=== PATIENT | male | born 1955 | race Caucasian/White ===

== ENCOUNTER 2020-01-02 19:32 | Inpatient (IN) | payer OTHER ==
[~2020-01-02] VITALS: Ht 180.3 cm; Wt 56.1 kg
--- NOTE | ~2020-01-02 | D ---
[facility] [place] [address] DISCHARGE SUMMARY Name: IRIS SALDANA II Room #: 522B-B DIS IN M.R.#: [id number] Admission: 01/02/20 Attend Phys: Babak Mccann DO Discharge: 01/08/20 Date of : 57 Report #: [id number] THIS REPORT FOR: cc: ALEN - Jessi family physician/PCP ALEN - No family physician/PCP Babak Mccann DO ~ THIS REPORT FOR: //name// CC: Babak LOWRY physician/PCP DATE OF SERVICE: 01/08/2020 INPATIENT PSYCHIATRIC DISCHARGE SUMMARY ATTENDING PHYSICIAN: Babak Mccann DO. WIREWORKER: José Miguel Wilkins MD DISCHARGE DIAGNOSES: Schizophrenia and severe protein-calorie malnutrition as well. Diagnosis for his fingers initially it was thought it might be herpes vitiligo, but viral culture was negative and it grew out Staph aureus and Rothia mucilaginosa, that was Gram stain, anaerobic. MEDICAL COMORBIDITIES: Include abnormal liver function tests, chronic constipation. 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 DIET: Regular. ACTIVITY LEVEL: As tolerated. No alcohol, no illicit drugs. The patient is being discharged to his home. DISCHARGE MEDICATIONS: Bactrim-DS 1 tab p.o. b.i.d. x 12 more doses 6 more days; olanzapine 5 mg in the morning and 10 mg in the evening, Rx given for 10 mg #45; gentamicin sulfate ointment, approximately 1 g topical daily for 2 more weeks; magnesium oxide 400 mg p.o. b.i.d. for supplementation. The patient takes Linzess 145 mcg p.o. daily for bowel motility; takes buspirone 15 mg p.o. 3 times a day. Imaging this admission was arterial and venous study, which was limited due to his cooperation, but right upper extremity ultrasound arterial and venous was negative. [facility] [address] [place] [address] DISCHARGE SUMMARY Name: IRIS SALDANA MARGO Room #: 522B-B [facility].#: [id number] Admission: 01/02/20 Attend Phys: Babak Mccann, DO Discharge: 01/08/20 Date of : 57 Report #: [id number] Other laboratories this admission, hematology on the , H and H is 7.1 and 32.1, white count 4.0, platelets 209. Chemistries: Sodium 140, potassium 3.9, chloride 107, bicarbonate 32, anion gap 3, BUN 16, creatinine 0.9, estimated GFR 85, glucose 93, calcium 8.6, magnesium 1.3. Iron 93, TIBC 182, percent sat is 51 which is high, ferritin 306. Total bilirubin 0.7, direct bilirubin 0.3, GGT 376, AST 107, ALT 120, alkaline phosphatase 425. Total protein 5.8, albumin 2.5, vitamin B12 of 792, vitamin D absolutely low at 6.6. Deferred replacement on that, I believe to outpatient. TSH 2.662, which was negative. REASON FOR ADMISSION: Back on 01/02/2020 and was as follows: A 64-year-old male sent from [place]. Apparently, he had hypernatremia, dehydration, felt to be psychotic. HOSPITAL COURSE: The patient remains a voluntary, spoke with his outpatient psychiatrist, Dr. Matheus Orozco who has been seeing him since 08/2016. The patient has refused to take oral and long-acting injection antipsychotic medication. The patient's sister was contacted at home to provide some housing and food at times. Her name is Keiko Rosen. She had similar difficulty. The patient's son only unable to pursue guardianship due to family ____. The patient was oriented and understood the risks of illness and with continued malnutrition. He did take antipsychotic medication while in the hospital by doubtful, be compliant outside the hospital. On the day of discharge, the patient was not suicidal or homicidal. PHYSICAL EXAMINATION: VITAL SIGNS: On the day of discharge, temperature 36.5, pulse 87, respirations 20, BP 106/67. MUSCULOSKELETAL: Normal gait and station. MENTAL STATUS EXAMINATION: This is a well-developed, very malnourished underweight appearing male. Attention fair. Concentration limited. Speech is normal in rate, volume and tone. Thought process is linear and goal oriented. Thought content focused on discharge. No psychomotor agitation. No psychomotor retardation. Denied SI or HI. Denied auditory, visual, or tactile hallucinations. Denied hopelessness, helplessness. Memory not formally tested on day of discharge. Insight limited. Judgment fair to limited. Fund of knowledge below average. PROGNOSIS: For this patient is poor given his long noncompliance and has worked with Dr. Orozco and given his age, comorbidities. The patient in terms of followup will need psychiatric followup to attempt to encourage him to take medication. He is going to see Dr. Orozco at [facility] on 01/16/2020. I asked the renal social worker to attempt to set up by Gastroenterology [facility] [address] [place] [address] DISCHARGE SUMMARY Name: IRIS SALDANA II Room #: 522B-B DIS IN .R.#: [id number] Admission: 01/02/20 Attend Phys: Babak Mccann DO Discharge: 01/08/20 Date of : 57 Report #: [id number] appointment given his transaminitis and elevated alkaline phosphatase. At the moment, it does not like the patient was agreeable with that. By: [id number] Babak Mccann, DO /nt
[~2020-01-02 19:32] MED LIST: BUSPIRONE HCL10 MG PO; CLEOCIN HCL150 MG PO; TRAMADOL 50 MG50 MG PO
[2020-01-02 20:00] VITALS: BP 109/63
--- NOTE | 2020-01-02 20:00 | NUR ---
Assumed care of patient this pm shift. Patient arrived to the [facility] unit via wheelchair. Patient irritable and anxious when RN met with him. Patient also stated that he was hungry and has not eaten for over a month. Patient was given a turkey sandwhich tray this evening and ate it all along with esperanza crackers and applesauce. Patient takes medications whole with thin fluids. Patient is ambulatory and not a falls risk. Patient is impulsive and asks for the very thing that the nurse is working on multiple times. Patient is alert and oriented to person, place, and situation. Patient is continent of bowel and bladder. Patient is very neat and tidy and well groomed and dressed. Patient denies pain and patient denies hi/si. We will continue to monitor per hospital protocol.
[2020-01-02] MEDS ORDERED: BUSPIRONE HCL5 MG PO (21:19)
[2020-01-02] MEDS ORDERED: ZYPREXA5 MG PO (21:19)
[2020-01-02] MEDS ORDERED: LINZESS145 MCG PO (21:20)
[2020-01-03 09:21] VITALS: BP 136/72
[2020-01-03 09:36] LABS: ALBUMIN 2.4 g/dL (3.4-5.0); CALCIUM 7.8 mg/dL (8.5-10.1); CREATININE 0.7 mg/dL (0.7-1.3); MAGNESIUM 1.4 mg/dL (1.8-2.4); POTASSIUM 4.3 mmol/L (3.5-5.1); TOTAL BILIRUBIN 0.8 mg/dL (0.2-1.0); TOTAL PROTEIN 5.1 g/dL (6.4-8.2)
--- NOTE | 2020-01-03 14:05 | NUR ---
SW spoke with pt's sister Keiko [phone] and completed the intake assessment and TP. Pt lives alone in the home and has had multiple inpt and hospital stays since a TBI in 2006. Pt's has paranoid delusions of being poisoned by food or his furnace. This pt is non meds compiant and is seen by Dr Orozco at [facility]. t lives on disability and does not have a DPOA. Pt self medicates with OTC testosterone nad denies any subtane or ETOH misuse. Pt is likely going to d/c home with outpt treatment.
[2020-01-03 20:18] VITALS: BP 117/71
--- NOTE | 2020-01-04 01:50 | NUR ---
PATIENT IS A/OX3. HE WAS UP THIS EVENING AND IN DINING ROOM TO HAVE AN HS SNACK. PATIENT HAS BEEN CALM AND COOPERATIVE. PT IS DELUSIONAL IN THAT HE SAYS THE BLISTERS HE RECEIVED ON BILATERAL FINGER TIPS WERE FROM PEOPLE PUTTING DRANO IN HIS GLOVES AT WORK. HE ALSO FELT PEOPLE WERE TRYING TO POISON HIM. WE DID DISCUSS HIS WORK HE DOES AND HE HAS BEEN THERE FOR 23.5 YEARS. HE HAS BANDAID ON ONE FINGER TIP ON EACH HAND. THIS NURSE REMOVED THE BANDAIDS AND CLEANED WOUNDS WITH SOAP AND WATER. LEFT HAND WAS CULTURED WITH FOR ANAEROBIC,AEROBIC AND VIRUS CULTURES. GENTAMYCIN OINTMENT APPLIED TO FINGERTIPS AND NEW BANDAIDS APPLIED. PATIENT WALKS WITH STEADY GAIT AND IS CLEAN AND WELL DRESSED. PT DENIES SI/HI/AVH. PATIENT SLEEPING AT THIS TIME. PT DENIES PAIN. ROUTINE ROUNDS FOR STATUS AND SAFETY OF PATIENT. BED IN LOW POSITION. PATIENT IS INDEPENDENT WITH CARES AND IS CONTINENT.
--- NOTE | 2020-01-04 10:36 | HC ---
[facility] [place] [address] CONSULTATION Name: IRIS SALDANA II Room #: 52-B ADM IN M.R.#: [id number] Admission: 01/02/20 Attend Phys: Babak Mccann, Discharge: Date of : 57 Report #: [id number] THIS REPORT FOR: cc: ALEN - No family physician/PCP FAM - No family physician/PCP Dave Myers MD ~ CC: Babak Mccann [facility] physician/PCP DATE OF SERVICE: 01/03/2020 CHIEF COMPLAINT: Ulcerations to fingertips. HISTORY OF PRESENT ILLNESS: This is a 64-year-old male patient who was [facility] from [facility] for schizophrenia, suicidal ideation and low oral intake. He was noted to have ulcerations on his fingertips. He states that they are painful and cracking and needs to keep a moisturizer in place. He is uncertain as to when and how they began. He is a little bit uncooperative for exam, but does allow me to see his fingers. PAST MEDICAL HISTORY: Positive for history of schizophrenia, insomnia, constipation, anxiety, depression, cognitive impairment, and severe protein-calorie malnutrition. PAST SURGICAL HISTORY: He has had previous cholecystectomy. SOCIAL HISTORY: The patient denies alcohol or tobacco use or recreational drug use. Normally lives at home by himself. FAMILY HISTORY: Positive for history of father with lung cancer and a sister with a history of breast cancer. ALLERGIES: None. MEDICATIONS: Include nicotine, benzocaine and menthol, aluminum hydroxide, ondansetron, buspirone, Linzess, and Zyprexa. REVIEW OF SYSTEMS: Very limited due to the patient's cognitive impairment. PHYSICAL EXAMINATION: VITAL SIGNS: At this time include temperature 36.9, pulse 90, respiratory rate 13, blood pressure 136/72. GENERAL: This is a somewhat chronically ill-appearing male patient who appears to be in no distress. HEENT: Head normocephalic. Nose is clear. [address] [address] CONSULTATION Name: SHANAIRIS Room #: [facility] ADM IN .R.#: [id number] Admission: 01/02/20 Attend Phys: Babak Mccann, Discharge: Date of : 57 Report #: [id number] NECK: Supple. ABDOMEN: Soft. Bowel sounds present. EXTREMITIES: Demonstrate multiple superficial ulcerations to the fingertips with surrounding erythema. It is unclear as to whether these are self-induced, certainly would consider possibility of herpetic ashley, although I think less likely since multiple fingers on both hands are involved, but it does primarily seem to involve the fourth fingers of both hands. NEUROLOGIC: The patient is alert and moving all 4 extremities spontaneously. LABORATORY DATA: Include sodium 135, potassium 4.3, chloride 101, CO2 of 26, BUN 11, creatinine 0.7, glucose of 98, calcium is 7.8, alkaline phosphatase 315, total protein 5.1, albumin 2.4. Additional laboratory studies are not available for review at this time. CLINICAL IMPRESSION: Multiple ulcerations to the fingers of both hands, most pronounced on the fourth fingers. The differential diagnosis would include a cellulitis. The possibility of some arterial issues is considered, although I can feel his ulnar and radial pulses bilaterally. Herpetic ashley would be a consideration as well. RECOMMENDATIONS: At this point in time, we would recommend topical gentamicin ointment to the areas of redness to be covered with a Band-Aid. We will obtain a viral culture as well as a culture and sensitivity. I think we should be cautious with direct contact of these areas. I have discussed this with Dr. Wilkins as well as with Dr. Mccann. I appreciate being asked to see the patient in consultation. We will follow him here in the hospital. <ELECTRONICALLY SIGNED> By: Dave Myers MD 01/04/20 1036 [id number] Dave Myers MD /nt
--- NOTE | 2020-01-04 11:21 | NUR ---
Dann went to have ultra sound completed. The ultra sound was incomplete, per the imagining tech, Dann became beligerent with them. The tech made the decision to halt the US. Dr. Mccann was informed. Dr. Wilkins will be informed also.
--- NOTE | 2020-01-04 12:28 | NUR ---
Up ambulating with regular, steady gait. Alert and orientated X4. Denies SI/HI. Breath sounds clear. Reg HR ausculated. Color pink with brisk capillary refill and palpable peripheral pulses. Independent with voiding. Active bowel sounds over soft, flat abdomen. Fingertips of 4th finger discolored with some denuded skin, cleaned with NS and gentamycin ointment applied. To ultrasound per WC mid morning with staff. Calm and compliant with meds.
[2020-01-04 16:24] VITALS: BP 127/89
--- NOTE | 2020-01-04 18:28 | H ---
[facility] [place] [address] HISTORY AND PHYSICAL Name: IRIS SALDANA II Room #: 522B-B ADM IN M.R.#: [id number] Admission: 01/02/20 Attend Phys: Babak Mccann DO Discharge: Date of : 57 Report #: [id number] THIS REPORT FOR: cc: ALEN - No family physician/PCP FAM - No family physician/PCP Babak Mccann DO ~ CC: Babak Mccann [facility] physician/PCP DATE OF SERVICE: 01/03/2020 INPATIENT PSYCHIATRIC EVALUATION ATTENDING PHYSICIAN: Babak Mccann DO MEDICAL CONSULTANTS: Yeny Spear APRN, and Chaz Brand MD REASON FOR ADMISSION: Transferred from [facility], had a medical admission now, psychosis, paranoia, refusal to eat. SOURCES OF INFORMATION: Records from [place] and interview with the patient. HISTORY OF PRESENT ILLNESS: This is a 64-year-old male, very thin, BMI is 16.9, weight 54.885 kg, height 180.34 cm. The patient was admitted on 12/27/2019 to [place], so about a 6-day admission for medical purposes. There is a psychiatric consultation, which I have reviewed in detail. From the medical admission, a 64-year-old male admitted due to constipation, dehydration, electrolyte abnormalities in the setting of paranoid ideation regarding his food being poisoned. So, he only has eaten limited packaged foods in the past month, believes that he has been drugged at home. The patient was found to have hyponatremia, hypomagnesemia and constipation as well. IV fluids were given. Mag was as low as 0.9. Sodium was low as 129. KUB showed retained stool. Lipase was elevated at 447. Chest x-ray was negative. Initial laboratories, 12/28/2019, on the patient were white count 4.4, H and H 13.4/37.0, platelet count 141. Electrolytes were as of 12/28/2019, sodium 132, potassium 2.7, bicarbonate 30, anion gap 13, BUN 13, creatinine 1.0, GFR 80, glucose 135, calcium 7.4, phosphorus 1.4, magnesium 2.2. Psychiatric consultation done at [facility] by a fellow psychiatrist, Neha Mckeon MD, found him to be paranoid with other people poisoning him. ED physician spoke with sister, reportedly told another family member that if he does not get any better, he is going to kill himself. She stated the patient does not want to eat because they are clogging his asshole, does not know who they are, and it does not matter who is behind, believes they are putting stuffs and foods at the stores, which is causing his constipation, everyone will deny it, but it is [address] [address] HISTORY AND PHYSICAL Name: IRIS SALDANA MARGO Room #: 522B-B ADM IN M.R.#: [id number] Admission: 01/02/20 Attend Phys: Babak Mccann, DO Discharge: Date of : 57 Report #: [id number] true. Also, feels that they are drugging him in his home against his will. Buspirone 5 mg p.o. t.i.d. was prescribed as well as olanzapine 5 mg at bedtime. Other recommendation from a fellow psychiatrist for the patient not to leave AMA. Recommended inpatient psychiatric admission. With me, he reports that he is constipated. He does use Linzess, which is not on formulary at this hospital, so I ordered him senna with docusate. He sees Dr. Matheus Orozco at [facility], his outpatient psychiatrist. PAST MEDICAL HISTORY: Is a little bit limited as having some difficulty gathering it. Apparently, he receives care at [facility]. He had been evaluated by GI physician who felt that no further workup was indicated given chronic disease state. Routine colonoscopy completed in 2016. Apparently in 2017, he had concerns with his poor oral intake, feeling as though people are trying to poison him and had paranoia then. Medical history includes chronic constipation. PSYCHIATRIC HISTORY: Anxiety, depression. PAST SURGICAL HISTORY: Cholecystectomy. FAMILY HISTORY: Mom passed in the 80s secondary to complications from Clostridium difficile. Grandmother had colon cancer. Father passed at 82 from lung cancer. SOCIAL HISTORY: Denies alcohol. Denies recreational drug use. Former smoker, unknown date last smoked. REVIEW OF SYSTEMS: CONSTITUTIONAL: Reported fatigue, weakness, right shoulder pain and back pain, recent weight loss. Denies chills. SKIN: Denies bruising, diaphoresis, or swelling. ALLERGIES: Denies. EYES: Denies visual loss or blurred vision. EAR, NOSE, THROAT: Denies nasal congestion, sinus problem, sore throat. RESPIRATORY: Denies shortness of breath, wheezing. CARDIOVASCULAR: Denies palpitations, shortness of breath, chest pain. GASTROINTESTINAL: Denies nausea. Endorsed constipation. Denies diarrhea, dysphagia, GERD, hematemesis, melena or vomiting. GENITOURINARY: Denies frequency, burning or urgency. MUSCULOSKELETAL: Pain as described. ENDOCRINE: Reports weight loss. Denies dizziness. PSYCHIATRIC: Denied overt suicidal ideations, but did make statements that "you know everyone has to sometime." PHYSICAL EXAMINATION: VITAL SIGNS: Today are as follows: Temperature 36.5, pulse 90, respirations [facility] [address] [place] [address] HISTORY AND PHYSICAL Name: IRIS SALDANA II Room #: 522B-B ADM IN M.R.#: [id number] Admission: 01/02/20 Attend Phys: Babak Mccann DO Discharge: Date of : 57 Report #: [id number], BP 136/72, O2 sat 97%. GENERAL: A poorly nourished, almost cachectic appearing. He is kyphotic, thoracic kyphosis. Normal gait. MENTAL STATUS EXAMINATION: This is a well-developed, unkempt, malnourished appearing male. Attention fair. Concentration limited. Speech is normal rate, volume, tone. Thought process is linear and goal directed. Thought content, relative poverty of thought. No psychomotor agitation. No psychomotor retardation. Mood and affect are congruent and restricted. Denied auditory, visual or tactile hallucinations currently. He did say occasionally he has idea of reference such as someone behind him running even if there is not. Denies homicidal ideation, some morbid thinking. Insight impaired, judgment impaired. Fund of knowledge not formally tested today. FORMULATION: A 64-year-old male, voluntary, sent over from [facility] with history of schizophrenia. PLAN: Evaluate, stabilize, obtain collateral. I increased his olanzapine to 7.5 mg at bedtime last night, I added 2.5 mg at 12:30 dose today. Otherwise, we will continue him on senna-S 2 tabs p.o. b.i.d., nicotine 14 mg transdermal patch. I think the nurse got a history that he is smoking half pack a day and [facility] stated he was not. MiraLax 17 grams daily already ordered. Buspirone 15 mg t.i.d. currently ordered, the patient seems to like that drug. Home med Linzess is not available. We will consult dietitian, consult OT for gout as well. ESTIMATED LENGTH OF STAY: 10-14 days. STRENGTHS: Insured support from sister. WEAKNESSES: Chronic mental illness, remarkably malnourished. Time spent on interview, review of records, and coordination of care is at least 60 minutes. <ELECTRONICALLY SIGNED> By: Babak Mccann DO 01/04/20 1828 [id number] [id number] Babak Mccann DO /nt
[2020-01-04 19:24] VITALS: BP 131/74
[2020-01-04 21:00] VITALS: BP 131/74
--- NOTE | 2020-01-05 02:43 | NUR ---
PATIENT WAS LAYING ON COUCH IN DAYROOM THIS EVENING WATCHING TV. HE STATES HE HAD A BM TODAY BUT THAT IS HARD TO GET OUT AT TIME. HE IS USED TO TAKING LINZESS. HE IS WANTING TO CONTINUE THIS. PATIENT IS A/0X4 AND FORGETFUL AT TIMES. HIS MAIN CONCERN TONIGHT IS THAT HE WANTS SOMETHING TO HELP HIM STAY ASLEEP. PATIENT FELL ASLEEP OKAY BUT WAS UP 2-3 TIMES BEFORE 0100. CALLED AND ORDER RECEIVED FOR LORAZEPAM 1MG PO ONETIME. PATIENT IS BACK TO BED AND SLEEPING AT THIS TIME. HE HAS BEEN A LITTLE IRRITABLE THIS EVENING BUT COOPERATIVE AND TOOK ALL HIS MEDS WHOLE. HE HAD 2 HS SNACKS TONIGHT. HE SEEMS TO BE HUNGRY ALOT. HE DENIES PAIN, SI/HI/AVH. HE AMBULATES WITH A STEADY GAIT. BED IN LOW POSITION. PATIENT INDEPENDENT WITH CARES. WILL CONTINUE ROUTINE ROUNDS TO ASSESS FOR SAFETY AND STATUS OF PATIENT.
[2020-01-05 07:40] VITALS: BP 134/88
[2020-01-05 08:30] VITALS: BP 134/88
--- NOTE | 2020-01-05 08:59 | NUR ---
PT SITTING IN DINING ROOM. PT EATING BREAFAST. PT TOOK MEDS AT THIS TIME WITHOUT ANY ISSUES. PT DENIES ANY PAIN. NO SIGNS OF PARANOIA AT THIS TIME.
--- NOTE | 2020-01-05 14:09 | NUR ---
MICHELLE and Dr Mccann spoke with pt's sister about her seeking guardianship and she is unable. She mentioned that they have made changes in the pt's home that should help with him getting out more. She stated that he is good in housekeeping and his ADL's. She is going to start meals on wheels as he enjoys hospital food. We discussed d/c and she will come pick him up at 10:30 am on Thursday 01/04. MICHELLE then called and confimred that this pt has an in office appointment with Dr Orozco at [facility], (f) [phone] on January 16, 2020. MICHELLE will fax the d/c orders and summary on Wednesday.
--- NOTE | 2020-01-05 15:55 | NUR ---
PT ATTENDED GROUP THIS AFTERNOON ONLY IF GIVEN ICE CREAM OR PUDDING. RESPIRATORY SERVICES MANAGER GAVE PUDDING, PT ASKED FOR PAIN MEDICATION. ADM IBUPROPHEN 600MG PO FOR PAIN TO LOWER BACK OF 8 ON 1-10 PAIN.
--- NOTE | 2020-01-05 18:27 | NUR ---
PT STATED IBUPROPHEN HELPED HIS PAIN. PT HAS ATTENDED GROUPS TODAY AND TOOK HIS MEDICATION. PT ALSO HAS HAD SNACKS AND ATE EACH MEAL.
[2020-01-05 20:00] VITALS: BP 95/51
[2020-01-05 21:43] LABS: HEMATOCRIT 30.8 % (42.0-52.0); HEMOGLOBIN 10.6 gm/dL (14.0-18.0); MCH 32.1 pg (26.0-34.0); MCHC 34.4 g/dL (28.0-37.0); MCV 93.2 fL (80.0-100.0); RBC 3.3 mil/uL (4.50-6.00); RDW 13.7 % (10.5-14.5); WBC 4.4 thou/uL (4.0-11.0)
[2020-01-05 22:00] VITALS: BP 95/51
[2020-01-05 22:06] LABS: ALBUMIN 2.2 g/dL (3.4-5.0); CREATININE 1.1 mg/dL (0.7-1.3); MAGNESIUM 1.4 mg/dL (1.8-2.4); POTASSIUM 3.3 mmol/L (3.5-5.1); TOTAL BILIRUBIN 0.6 mg/dL (0.2-1.0); TOTAL PROTEIN 5.2 g/dL (6.4-8.2)
[2020-01-05 22:39] LABS: TSH 16.662 uIU/mL (0.358-3.740)
--- NOTE | 2020-01-06 01:51 | NUR ---
Assumed care of patient this pm shift. Patient in good spirits, calm and cooperative. Patient has a perplexed facial affect. Patient is alert and oriented x4. Patient denies pain. Patient denies hi/si. Patient states that he is eating well but is still hungry. Patient takes medications whole. Patient is medication adherent. Patient ambulates without assistance. Patients assessment shows no signs of acute distress. We will continue to monitor per hospital protocol.
[2020-01-06 06:11] LABS: HEMATOCRIT 32.1 % (42.0-52.0); HEMOGLOBIN 11.1 gm/dL (14.0-18.0); MCH 32.2 pg (26.0-34.0); MCHC 34.5 g/dL (28.0-37.0); MCV 93.5 fL (80.0-100.0); RBC 3.43 mil/uL (4.50-6.00); RDW 13.8 % (10.5-14.5)
[2020-01-06 06:35] LABS: ALBUMIN 2.2 g/dL (3.4-5.0); CALCIUM 8.6 mg/dL (8.5-10.1); CREATININE 0.9 mg/dL (0.7-1.3); MAGNESIUM 1.3 mg/dL (1.8-2.4); POTASSIUM 3.9 mmol/L (3.5-5.1); TOTAL BILIRUBIN 0.6 mg/dL (0.2-1.0); TOTAL PROTEIN 5.1 g/dL (6.4-8.2)
[2020-01-06 07:52] VITALS: BP 114/70
[2020-01-06 12:29] LABS: % SATURATION 51 % (20-39); IRON 93 ug/dL (65-175); TIBC 182 ug/dL (250-450)
--- NOTE | 2020-01-06 12:35 | NUR ---
PATIENT STATES HAD GOOD NIGHT. DENIES ANY S/I - GOOD APPETITE - STATED BACK PAIN - GIVEN IBUPROPHEN TO HELP WITH DISCOMFORT. COMPLIANT WITH MEDICATIONS. CONSULTS CALLED IN FOR DR. JUAREZ AND DR. DUBOIS PER DR. COYNE INSTRUCTIONS. DR. 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 PATIENT UP ON UNIT MOST OF MORNING.
[2020-01-06 12:52] VITALS: BP 114/70
--- NOTE | 2020-01-06 23:31 | NUR ---
PROGRESS PT IN DAYROOM AT START OF SHIFT LAYING ON SOFA WATCHING TV. REASSESSMENT COMPLETED. VSS, PLEASANT AND COOPERATIVE BANDAIDS TO BILATERAL MIDDLE FINGERS C/D/I WOUNDS NOT VISUALIZED. TOOK MEDICATIONS WITHOUT DIFFICULTY AND WENT TO BED SHORTLY AFTER. BEHAVIOR APPROPRIATE NO HALLUCINATIONS VERBALIZED OR NOTED. PT IS A LOW FALL RISK AMBULATES STEADILY AND INDEPENDENTLY. CONTINUE TO MONITOR
[2020-01-07 00:06] LABS: HAV IgM AB (ANTI-HAV IgM) Negative (Negative); HEPATITIS B SURFACE AG Negative (Negative); HEPATITIS C VIRUS AB <0.1 (0.0-0.9)
--- NOTE | 2020-01-07 02:07 | NUR ---
01-06-20 CARE TRANSFERED AT 2300 PT SUPINE IN BED RESTING WITH EYES CLOSED, RR 16 EVEN AND NONLABORED ON RA; VITAL REVIEWED VSS. ZERO ACUTE DISTRES NOTED. WILL CONTINUE TO MONITOR PER [facility].
[2020-01-07 06:06] LABS: HEPATITIS B SURFACE AG Negative (Negative); HEPATITIS C VIRUS AB <0.1 (0.0-0.9)
[2020-01-07 08:59] VITALS: BP 109/62
[2020-01-07 10:20] LABS: ALBUMIN 2.5 g/dL (3.4-5.0); DIRECT BILIRUBIN 0.3 mg/dL (<0.1-0.2); TOTAL BILIRUBIN 0.7 mg/dL (0.2-1.0); TOTAL PROTEIN 5.8 g/dL (6.4-8.2)
[2020-01-07 12:29] VITALS: BP 109/62
--- NOTE | 2020-01-07 12:46 | NUR ---
PATIENT CARE ASSUMED AT 0700 - AWOKE AT 0430 AND UP AND AWAKE WHEN ARRIVING ON UNIT AT 0600. PATIENT CALM AND AGREEBLE. NO S/I - STATES READY FOR DISCHARGE. NO AUDITORY OF VISUAL HALLUCINATIONS OBSERVED OR STATED. AMBULATES INDEPENDENTLY, MAKES NEEDS KNOWN. APPEARS TO BE AT BASELINE ONCE AGAIN.... MED COMPLIANT - APPETITE GOOD. DENIES DEPRESSSION OR ANXIETY WHE QUESTIONED. COMPLAINED OF BACK PAIN EARLIER BUT NOW SUBSIDED.
--- NOTE | 2020-01-07 14:55 | NUR ---
Discussed pt's need for COVID testing prior to discharge with nursing staff and Dr. Chaney.
[2020-01-07 20:08] VITALS: BP 136/81
[2020-01-07 22:00] VITALS: BP 136/81
--- NOTE | 2020-01-08 00:53 | NUR ---
Assumed care of patient this pm shift. Patient in good spirits sitting in the mileu. Patient is alert and oriented x4. Patient is medication adherent. Patient takes medications whole with thin fluids. Patient is neat and clean and wears nice house designer clothing. Patient is ambulatory with a steady gait. Patient is not a falls risk. Patients assessment shows no signs of acute distress. Patients affect is normal. Patient denies pain. Patient denies hi/si. We will continue to monitor per hospital policy.
[2020-01-08] MEDS ORDERED: BACTRIM DS TAB1 EACH PO (07:05)
[2020-01-08] MEDS ORDERED: ZYPREXA 5 MG TAB5 M1 PO (07:08)
[2020-01-08] MEDS ORDERED: GENTAMICIN SULF15 GM TOP (07:10)
[2020-01-08] MEDS ORDERED: MAGNESIUM400 MG PO (07:11)
[2020-01-08] MEDS ORDERED: HOME MEDICATION PO (07:11)
[2020-01-08 07:45] VITALS: BP 106/67
[2020-01-08 08:00] VITALS: BP 106/67
[2020-01-08 08:46] VITALS: BP 106/67
--- NOTE | 2020-01-08 08:53 | NUR ---
PT IN DINING ROOM ON COUCH AFTER BREAKFAST. PT TOOK MEDS WITHOUT ANY ISSUES. PT WOUNDS TO FINGERS AND RT ELBOW ARE HEALING. PT DIDN'T HAVE BANDAIDS ON FINGERS THIS AM. PT LUNGS CLEAR. PT STATED HE HAD LOWER BACK PAIN AND S-1 KEEPS GOING IN AND OUT OF PLACEMENT. PT REFUSED ANY PAIN MED AT THIS TIME. HE SAID PAIN WAS NO BAD. PT DISCHARGING TODAY.
--- NOTE | 2020-01-08 10:50 | NUR ---
PT VERBALY UNDERSTOOD D/C ORDERS. SISTER IS GOING TO PICK HIM UP. PT UNDERSTOOD ABOUT NOT EATING FOR A MONTH WAS NOT GOOD. PT TALKED ABOUT NOT HAVING A BM FOR A MONTH.
--- NOTE | 2020-01-08 11:00 | NUR ---
PT LEFT VIA AMBULATION WITH FAMILY. PT HAS ALL BELONGINGS IN POSSESION.
--- NOTE | 2020-01-10 08:18 | HC ---
[facility] [place] [address] CONSULTATION Name: IRIS SALDANA II Room #: 52-B [facility] IN M.R.#: [id number] Admission: 01/02/20 Attend Phys: Babak Mccann, Discharge: 01/08/20 Date of : 57 Report #: [id number] THIS REPORT FOR: cc: ALEN - No family physician/PCP FAM - No family physician/PCP Raghu Lindsay MD ~ CC: Babak Mccann [facility] physician/PCP DATE OF SERVICE: 01/06/2020 GASTROENTEROLOGY CONSULTATION REASON FOR CONSULTATION: Abnormal liver function tests. BACKGROUND: The patient is a 64-year-old white male who admitted to the [facility] for paranoid schizophrenia, suicidal ideation and refusal to eat. History is obtained from the patient, but is not very reliable. He would relate that with concern that someone may be poisoning his food at home. He quit eating 1-1/2 months ago. He has chronic constipation and relates that he has not had a bowel movement for up to a month. He denies nausea or vomiting. After admission to the hospital, laboratory studies were reviewed with the finding of abnormal liver function tests, which were mild to moderately elevated with normal total bilirubin of 0.6, AST 93, ALT 108 and alkaline phosphatase 350. TSH was elevated at 16.662. He is not aware of any previous history of abnormal liver function tests. He has had no signs of bleeding from his body or abdominal distention. He relates that he had quit taking all of his medications previously prescribed. PAST MEDICAL HISTORY: He does have a history of schizophrenia, paranoid delusions, anxiety and depression, chronic constipation. He has undergone previous cholecystectomy. HOME MEDICATIONS: Were to have been buspirone 15 mg p.o. t.i.d., Zyprexa 5 mg at bedtime, Linzess 145 mcg per day. ALLERGIES: No known drug allergies. SH, FH, ROS not reliable. PHYSICAL EXAMINATION: GENERAL: The patient appears alert and in no acute distress at rest, pleasant in conversation. He has no scleral icterus or peripheral stigmata of chronic liver disease. NECK: No cervical lymphadenopathy. [facility] [address] [place] [address] CONSULTATION Name: SHANAIRIS Albert Room #: 522B-B [facility] IN [facility].#: [id number] Admission: 01/02/20 Attend Phys: Babak Mccann DO Discharge: 01/08/20 Date of : 57 Report #: [id number] CARDIAC: Heart rate and rhythm regular. LUNGS: Clear to auscultation. ABDOMEN: Soft, scaphoid with no obvious hepatosplenomegaly or palpable mass. He has trace peripheral edema. Other laboratory studies 12/15/2005 included CBC with white blood cell count 4400, hemoglobin 10.6 with MCV 93.2, platelet count 214,000. IMPRESSION: 1. Abnormal liver function tests, mixed hepatocellular and cholestatic pattern, etiology unclear. 2. Paranoid delusions with schizophrenia. 3. Chronic constipation. RECOMMENDATIONS: 1. Check abdominal ultrasound. 2. Check viral serology, serum iron studies, [place]. 3. If above studies unremarkable and liver tests remain elevated, further evaluation may be reviewed. <ELECTRONICALLY SIGNED> By: Michael Saldana MD 01/10/20 0818 [id number] Raghu Lindsay MD /nt
== END 2020-01-08 11:00 | disposition home or self-care (01) | DRG 885 ==
LOC: SBH
PROVIDERS: Internal Medicine; Nurse Practitioner Family; Specialist; ADMIT Psychiatry & Neurology Psychiatry; ATTEND Psychiatry & Neurology Psychiatry
DX: F20.0 Paranoid schizophrenia (principal); E43 Unspecified severe protein-calorie malnutrition; Z68.1 Body mass index [BMI] 19.9 or less, adult; F41.9 Anxiety disorder, unspecified; F32.9 Major depressive disorder, single episode, unspecified; R94.5 Abnormal results of liver function studies; K59.09 Other constipation; R74.0 Nonspecific elevation of levels of transaminase and lactic acid dehydrogenase [LDH]; R74.8 Abnormal levels of other serum enzymes; G47.00 Insomnia, unspecified; X58.XXXA Exposure to other specified factors, initial encounter; S60.412A Abrasion of right middle finger, initial encounter; S60.413A Abrasion of left middle finger, initial encounter; Y99.8 Other external cause status; Y93.89 Activity, other specified; Z90.49 Acquired absence of other specified parts of digestive tract; Z80.1 Family history of malignant neoplasm of trachea, bronchus and lung; Z80.3 Family history of malignant neoplasm of breast; Y92.89 Other specified places as the place of occurrence of the external cause
CPT/HCPCS: 10880